=== PATIENT | male | born 1985 | race Caucasian/White ===

== ENCOUNTER 2024-03-25 21:22 | Emergency (ER) | payer SELFPAY ==
[~2024-03-25] VITALS: Ht 170.2 cm; Wt 73.0 kg
[2024-03-25] MEDS: CHLORDIAZEPOXIDE 25MG CAPSULE PO ONE (00:05)
[2024-03-25 22:09] VITALS: O2SAT 98
[2024-03-26 01:30] VITALS: BP 122/65; PULSE 81; RESP 16; TEMP 36.50292; O2SAT 100
== END 2024-03-26 01:45 | disposition home or self-care (01) ==
LOC: ER 21:22
DX: S01.112A Laceration without foreign body of left eyelid and periocular area, initial encounter (principal); W01.0XXA Fall on same level from slipping, tripping and stumbling without subsequent striking against object, initial encounter; Y93.89 Activity, other specified; Y92.89 Other specified places as the place of occurrence of the external cause; Y99.8 Other external cause status
CPT/HCPCS: 12011; 99284

== ENCOUNTER 2024-04-12 09:20 | Emergency (ER) | payer SELFPAY ==
[~2024-04-12] VITALS: Ht 170.2 cm; Wt 73.0 kg
[2024-04-12 09:25] VITALS: O2SAT 100
[2024-04-12 10:01] VITALS: BP 112/59; PULSE 62; RESP 18; TEMP 36.66960; O2SAT 100
== END 2024-04-12 10:17 | disposition home or self-care (01) ==
LOC: ER 09:20
DX: S01.112D Laceration without foreign body of left eyelid and periocular area, subsequent encounter (principal); Z86.59 Personal history of other mental and behavioral disorders; Z48.02 Encounter for removal of sutures; X58.XXXD Exposure to other specified factors, subsequent encounter
CPT/HCPCS: 99281; Z7610